=== PATIENT | female | born 1980 | race Caucasian/White ===

== ENCOUNTER 2022-09-02 14:11 | Emergency (ER) | payer SELFPAY ==
[2022-09-02 14:24] VITALS: BP 135/91; PULSE 94; RESP 20; TEMP 98.1; BMI 24.0
[2022-09-02] MEDS ORDERED: TBO-FILGRASTIM 300 MCG/0.5 ML DISP.SYRINGE SQ ONE (16:01)
== END 2022-09-02 17:55 | disposition home or self-care (01) ==
LOC: JER 14:11
PROC: 3E023GC Introduction of Other Therapeutic Substance into Muscle, Percutaneous Approach (ICD-10-PCS; principal; 2022-09-02)
DX: D70.9 Neutropenia, unspecified (principal)
CPT/HCPCS: 99284-25; J1447